=== PATIENT | male | born 1955 | race African-American/Black ===

== ENCOUNTER 2019-07-18 19:19 | Inpatient (IN) ==
[2019-07-18] MEDS ORDERED: methylPREDNISolone SOD SUC 125 MG/2 ML VIAL IV STA (19:32)
[2019-07-18 19:39] LABS: Basophils # 0.1 10*3/uL (0.0-0.2); Basophils % 1.7 % (0.0-0.8); Eosinophils # 0.5 10*3/uL (0.0-0.87); Eosinophils % 6.5 % (0.00-10.9); Hematocrit 42.3 VOL% (42.0-52.0); Hemoglobin 13.7 GM/DL (14.0-18.0); Immature Granulocytes % 0.4 %; Immature Granulocytes Absolute 0.03 #; Lymphocytes # 1.5 10*3/uL (1.4-4.0); Lymphocytes % 21.7 % (21.2-54.2); Mean Corpuscular HGB Conc 32.4 GM/DL (32-36); Mean Corpuscular Volume 92.8 FL (87-102); Monocytes % 10.3 % (1.7-12.7); Neutrophils % 59.4 % (38.7-73.9); Platelet Count 159 T/CUMM (130-400); Red Blood Count 4.56 MC/CUMM (3.8-5.5); Red Cell Distribution Width 13.4 % (9.3-17.3); White Blood Count 6.9 T/CUMM (4-12)
[2019-07-18 19:56] LABS: Albumin 3.8 G/DL (3.4-5.0); Bilirubin,Total 0.7 MG/DL (0.2-1.0); Calcium 8.6 MG/DL (8.5-10.1); Osmolality,Calculated 280.1 MOS/KG (273-304)
[2019-07-18] MEDS ORDERED: AZITHROMYCIN 250 MG TABLET PO STA (20:26)
[2019-07-18] MEDS ORDERED: cefTRIAXone 1,000 MG in SODIUM CHLORIDE 0.9% 100 ML IV STA (20:26)
[2019-07-19] MEDS ORDERED: LORazepam 2 MG/1 ML VIAL IV PRN (00:46)
[2019-07-19] MEDS ORDERED: DOCUSATE SODIUM 100 MG CAPSULE PO PRN (00:46)
[2019-07-19] MEDS ORDERED: ONDANSETRON 4 MG/2 ML VIAL IV PRN (00:46)
[2019-07-19] MEDS ORDERED: MAGNESIUM SULF RIDER 2 GM in PREMIX 1 EACH IV PRN (00:46)
[2019-07-19] MEDS ORDERED: MAGNESIUM SULF RIDER 4 GM in PREMIX 1 EACH IV PRN (00:46)
[2019-07-19] MEDS ORDERED: ACETAMINOPHEN 325 MG TABLET PO PRN (00:46)
[2019-07-19] MEDS ORDERED: methylPREDNISolone SOD SUC 40 MG/1 ML VIAL IV ONE (01:00)
[2019-07-19] MEDS: LEVALBUTEROL 1.25 MG/3 ML NEB RESP TX SCH ×7 (01:15→23:55)
[2019-07-19 01:19] LABS: Calcium 8.8 MG/DL (8.5-10.1); Osmolality,Calculated 280.1 MOS/KG (273-304)
[2019-07-19 01:34] LABS: Basophils # 0.1 10*3/uL (0.0-0.2); Basophils % 0.5 % (0.0-0.8); Hemoglobin 13.2 GM/DL (14.0-18.0); Immature Granulocytes % 0.3 %; Immature Granulocytes Absolute 0.03 #; Lymphocytes # 0.3 10*3/uL (1.4-4.0); Lymphocytes % 2.8 % (21.2-54.2); Mean Corpuscular HGB Conc 32.2 GM/DL (32-36); Mean Corpuscular Volume 93.2 FL (87-102); Mean Platelet Volume 11.1 FL (9.6-12.0); Monocytes % 0.6 % (1.7-12.7); Neutrophils % 95.8 % (38.7-73.9); Platelet Count 149 T/CUMM (130-400); Red Cell Distribution Width 13.5 % (9.3-17.3); White Blood Count 9.4 T/CUMM (4-12)
[2019-07-19] MEDS: BUDESONIDE/FORMOTEROL 160-4.5 INHALER 6 GM INH SCH ×3 (01:51→21:53)
[2019-07-19] MEDS: CARVEDILOL 6.25 MG TABLET PO SCH ×3 (01:51→16:50)
[2019-07-19] MEDS: DOXYCYCLINE HYCLATE INJ 100 MG in SODIUM CHLORIDE 0.9% 100 ML IV SCH ×2 (01:57→12:33)
[2019-07-19 04:53] LABS: Anisocytosis 1+; Eosinophils 1 % (0-10); Lymphocytes 7 % (20-55); Platelet Estimate Adequate; Segmented Neutrophils 90 % (50-85); Total Cells Counted 100
[2019-07-19] MEDS: POTASSIUM CHLORIDE 20 MEQ TABLET PO PRN ×2 (05:51→08:45)
[2019-07-19] MEDS: ENOXAPARIN 40 MG/0.4 ML SYRINGE SUBCUT SCH (05:51)
[2019-07-19] MEDS: PHENYTOIN ER 100 MG CAPSULE PO SCH ×3 (08:44→21:49)
[2019-07-19] MEDS: predniSONE 20 MG TABLET PO SCH (08:44)
[2019-07-19] MEDS: FOLIC ACID 1 MG TABLET PO SCH (08:44)
[2019-07-19] MEDS: MONTELUKAST 10 MG TABLET PO SCH (08:45)
[2019-07-19] MEDS: MULTIVITAMIN (CENTRUM) TABLET PO SCH (08:45)
[2019-07-19] MEDS: TAMSULOSIN 0.4 MG CAPSULE PO SCH (08:45)
[2019-07-19] MEDS: amLODIPine 10 MG TABLET PO SCH (08:45)
[2019-07-19] MEDS: THIAMINE 100 MG TABLET PO SCH (08:45)
[2019-07-19] MEDS: GEMFIBROZIL 600 MG TABLET PO SCH (08:46)
[2019-07-20] MEDS: DOXYCYCLINE HYCLATE INJ 100 MG in SODIUM CHLORIDE 0.9% 100 ML IV SCH ×2 (02:08→12:24)
[2019-07-20] MEDS: LORazepam 2 MG/1 ML VIAL IV PRN ×6 (02:22→22:51)
[2019-07-20] MEDS: LEVALBUTEROL 1.25 MG/3 ML NEB RESP TX SCH ×6 (02:30→23:31)
[2019-07-20 08:16] LABS: Basophils % 0.2 % (0.0-0.8); Hematocrit 46.6 VOL% (42.0-52.0); Immature Granulocytes % 0.5 %; Immature Granulocytes Absolute 0.04 #; Lymphocytes # 0.6 10*3/uL (1.4-4.0); Lymphocytes % 7.4 % (21.2-54.2); Mean Corpuscular HGB Conc 32.6 GM/DL (32-36); Mean Corpuscular Volume 92.8 FL (87-102); Mean Platelet Volume 11.3 FL (9.6-12.0); Monocytes % 9.1 % (1.7-12.7); Neutrophils % 82.8 % (38.7-73.9); Platelet Count 143 T/CUMM (130-400); Red Blood Count 5.02 MC/CUMM (3.8-5.5); Red Cell Distribution Width 13.1 % (9.3-17.3); White Blood Count 8.7 T/CUMM (4-12)
[2019-07-20 08:28] LABS: Hemoglobin 15.2 GM/DL (14.0-18.0)
[2019-07-20 08:32] LABS: Calcium 9.5 MG/DL (8.5-10.1); Osmolality,Calculated 267.2 MOS/KG (273-304)
[2019-07-20] MEDS: GEMFIBROZIL 600 MG TABLET PO SCH (08:55)
[2019-07-20] MEDS: THIAMINE 100 MG TABLET PO SCH (08:56)
[2019-07-20] MEDS: TAMSULOSIN 0.4 MG CAPSULE PO SCH (08:56)
[2019-07-20] MEDS: predniSONE 20 MG TABLET PO SCH (08:56)
[2019-07-20] MEDS: MULTIVITAMIN (CENTRUM) TABLET PO SCH (08:56)
[2019-07-20] MEDS: amLODIPine 10 MG TABLET PO SCH (08:56)
[2019-07-20] MEDS: MONTELUKAST 10 MG TABLET PO SCH (08:56)
[2019-07-20] MEDS: PHENYTOIN ER 100 MG CAPSULE PO SCH ×3 (08:56→21:55)
[2019-07-20] MEDS: CARVEDILOL 6.25 MG TABLET PO SCH ×2 (08:56→17:34)
[2019-07-20] MEDS: FOLIC ACID 1 MG TABLET PO SCH (08:56)
[2019-07-20] MEDS: ENOXAPARIN 40 MG/0.4 ML SYRINGE SUBCUT SCH (08:56)
[2019-07-20] MEDS: BUDESONIDE/FORMOTEROL 160-4.5 INHALER 6 GM INH SCH ×2 (08:57→21:55)
[2019-07-21] MEDS: DOXYCYCLINE HYCLATE INJ 100 MG in SODIUM CHLORIDE 0.9% 100 ML IV SCH ×2 (00:55→14:35)
[2019-07-21] MEDS: LEVALBUTEROL 1.25 MG/3 ML NEB RESP TX SCH ×5 (02:47→19:11)
[2019-07-21 05:37] LABS: Basophils % 0.1 % (0.0-0.8); Eosinophils % 0.1 % (0.00-10.9); Hematocrit 45.7 VOL% (42.0-52.0); Immature Granulocytes % 0.5 %; Immature Granulocytes Absolute 0.04 #; Lymphocytes # 0.8 10*3/uL (1.4-4.0); Lymphocytes % 9.3 % (21.2-54.2); Mean Corpuscular HGB Conc 32.8 GM/DL (32-36); Mean Corpuscular Volume 91.6 FL (87-102); Mean Platelet Volume 11.6 FL (9.6-12.0); Platelet Count 147 T/CUMM (130-400); Red Blood Count 4.99 MC/CUMM (3.8-5.5); Red Cell Distribution Width 12.8 % (9.3-17.3); White Blood Count 8.1 T/CUMM (4-12)
[2019-07-21 06:08] LABS: Calcium 9.7 MG/DL (8.5-10.1); Osmolality,Calculated 270.1 MOS/KG (273-304)
[2019-07-21] MEDS: TAMSULOSIN 0.4 MG CAPSULE PO SCH (08:13)
[2019-07-21] MEDS: predniSONE 20 MG TABLET PO SCH (08:13)
[2019-07-21] MEDS: PHENYTOIN ER 100 MG CAPSULE PO SCH ×3 (08:13→20:17)
[2019-07-21] MEDS: CARVEDILOL 6.25 MG TABLET PO SCH ×2 (08:13→16:55)
[2019-07-21] MEDS: MONTELUKAST 10 MG TABLET PO SCH (08:13)
[2019-07-21] MEDS: ENOXAPARIN 40 MG/0.4 ML SYRINGE SUBCUT SCH (08:13)
[2019-07-21] MEDS: FOLIC ACID 1 MG TABLET PO SCH (08:13)
[2019-07-21] MEDS: amLODIPine 10 MG TABLET PO SCH (08:13)
[2019-07-21] MEDS: MULTIVITAMIN (CENTRUM) TABLET PO SCH (08:14)
[2019-07-21] MEDS: THIAMINE 100 MG TABLET PO SCH (08:14)
[2019-07-21] MEDS: GEMFIBROZIL 600 MG TABLET PO SCH (08:14)
[2019-07-21] MEDS: BUDESONIDE/FORMOTEROL 160-4.5 INHALER 6 GM INH SCH ×2 (08:19→20:18)
[2019-07-22] MEDS: LEVALBUTEROL 1.25 MG/3 ML NEB RESP TX SCH ×6 (00:45→19:03)
[2019-07-22] MEDS: DOXYCYCLINE HYCLATE INJ 100 MG in SODIUM CHLORIDE 0.9% 100 ML IV SCH ×2 (01:18→13:32)
[2019-07-22] MEDS: LORazepam 2 MG/1 ML VIAL IV PRN (04:35)
[2019-07-22 05:33] LABS: Basophils % 0.1 % (0.0-0.8); Eosinophils % 0.2 % (0.00-10.9); Hematocrit 45.2 VOL% (42.0-52.0); Hemoglobin 14.6 GM/DL (14.0-18.0); Immature Granulocytes % 0.4 %; Immature Granulocytes Absolute 0.03 #; Lymphocytes # 1.2 10*3/uL (1.4-4.0); Lymphocytes % 13.7 % (21.2-54.2); Mean Corpuscular HGB Conc 32.3 GM/DL (32-36); Mean Corpuscular Volume 92.6 FL (87-102); Mean Platelet Volume 12.5 FL (9.6-12.0); Monocytes % 14.1 % (1.7-12.7); Neutrophils % 71.5 % (38.7-73.9); Platelet Count 110 T/CUMM (130-400); Red Blood Count 4.88 MC/CUMM (3.8-5.5); Red Cell Distribution Width 12.7 % (9.3-17.3); White Blood Count 8.4 T/CUMM (4-12)
[2019-07-22 05:57] LABS: Calcium 9.1 MG/DL (8.5-10.1); Osmolality,Calculated 268.2 MOS/KG (273-304)
[2019-07-22] MEDS ORDERED: MAGNESIUM SULF RIDER 2 GM in PREMIX 1 EACH IV ONE (08:07)
[2019-07-22] MEDS: CARVEDILOL 6.25 MG TABLET PO SCH ×2 (08:47→17:08)
[2019-07-22] MEDS: TAMSULOSIN 0.4 MG CAPSULE PO SCH (08:47)
[2019-07-22] MEDS: MULTIVITAMIN (CENTRUM) TABLET PO SCH (08:47)
[2019-07-22] MEDS: predniSONE 20 MG TABLET PO SCH (08:47)
[2019-07-22] MEDS: PHENYTOIN ER 100 MG CAPSULE PO SCH ×3 (08:47→21:09)
[2019-07-22] MEDS: GEMFIBROZIL 600 MG TABLET PO SCH (08:48)
[2019-07-22] MEDS: amLODIPine 10 MG TABLET PO SCH (08:48)
[2019-07-22] MEDS: MONTELUKAST 10 MG TABLET PO SCH (08:48)
[2019-07-22] MEDS: THIAMINE 100 MG TABLET PO SCH (08:48)
[2019-07-22] MEDS: FOLIC ACID 1 MG TABLET PO SCH (08:48)
[2019-07-22] MEDS: ENOXAPARIN 40 MG/0.4 ML SYRINGE SUBCUT SCH (08:49)
[2019-07-22] MEDS: BUDESONIDE/FORMOTEROL 160-4.5 INHALER 6 GM INH SCH ×2 (08:56→21:12)
[2019-07-23] MEDS: LEVALBUTEROL 1.25 MG/3 ML NEB RESP TX SCH ×3 (00:31→07:08)
[2019-07-23] MEDS: DOXYCYCLINE HYCLATE INJ 100 MG in SODIUM CHLORIDE 0.9% 100 ML IV SCH (00:36)
[2019-07-23 07:58] VITALS: BP 142/94
[2019-07-23] MEDS ORDERED: MAGNESIUM SULF RIDER 2 GM in PREMIX 1 EACH IV ONE (08:50)
[2019-07-23] MEDS: predniSONE 20 MG TABLET PO SCH (09:01)
[2019-07-23] MEDS: MONTELUKAST 10 MG TABLET PO SCH (09:02)
[2019-07-23] MEDS: FOLIC ACID 1 MG TABLET PO SCH (09:02)
[2019-07-23] MEDS: THIAMINE 100 MG TABLET PO SCH (09:02)
[2019-07-23] MEDS: TAMSULOSIN 0.4 MG CAPSULE PO SCH (09:02)
[2019-07-23] MEDS: GEMFIBROZIL 600 MG TABLET PO SCH (09:02)
[2019-07-23] MEDS: PHENYTOIN ER 100 MG CAPSULE PO SCH (09:02)
[2019-07-23] MEDS: MULTIVITAMIN (CENTRUM) TABLET PO SCH (09:02)
[2019-07-23] MEDS: CARVEDILOL 6.25 MG TABLET PO SCH (09:02)
[2019-07-23] MEDS: amLODIPine 10 MG TABLET PO SCH (09:02)
[2019-07-23] MEDS: BUDESONIDE/FORMOTEROL 160-4.5 INHALER 6 GM INH SCH (09:04)
== END 2019-07-23 10:15 | disposition home health service (06) | DRG 190 ==
LOC: EDBD → EDUNIT# → N.ED 19:19 → N.EDINP 22:31 → N.TELEN 07-19 00:17 → N.3E 07-19 16:26
PROVIDERS: ADMIT Internal Medicine; ATTEND Internal Medicine

== ENCOUNTER 2019-07-25 20:36 | Inpatient (IN) ==
[2019-07-25] MEDS ORDERED: AZITHROMYCIN INJ 500 MG in SODIUM CHLORIDE 0.9% 250 ML IV STA (20:52)
[2019-07-25] MEDS ORDERED: ONDANSETRON 4 MG/2 ML VIAL IV STA (20:52)
[2019-07-25] MEDS ORDERED: methylPREDNISolone SOD SUC 125 MG/2 ML VIAL IV STA (20:52)
[2019-07-25] MEDS ORDERED: ALBUTEROL NEB SOLN 5 MG/ML 20 ML/BOTTLE RESP TX SCH (21:00)
[2019-07-25] MEDS: TERBUTALINE 1 MG/1 ML VIAL SUBCUT SCH ×2 (21:13→21:50)
[2019-07-25] MEDS ORDERED: TERBUTALINE 1 MG/1 ML VIAL SUBCUT ONE (21:19)
[2019-07-25] MEDS ORDERED: ALBUTEROL/IPRATROPIUM 3 ML NEB RESP TX STA (21:31)
[2019-07-25 21:42] LABS: ABG Base Excess -1.2 MMOL/L (-2.5-2.5); ABG HCO3 26.4 MMOL/L (20-26); ABG Oxygen Saturation 95.1 % (95-100); ABG PCO2 56.2 MM HG (35-48); ABG PO2 85.5 MM HG (80-95); ABG TCO2 28.1 MMOL/L (23-27); Allen Test Positive
[2019-07-25] MEDS ORDERED: guaiFENesin/DM ER 600-30 MG TABLET PO PRN (22:15)
[2019-07-25] MEDS ORDERED: diphenhydrAMINE CAP 25 MG CAPSULE PO PRN (22:15)
[2019-07-25] MEDS ORDERED: MORPHINE 4 MG/1 ML VIAL IV PRN (22:15)
[2019-07-25] MEDS ORDERED: ONDANSETRON 4 MG/2 ML VIAL IV PRN (22:15)
[2019-07-25] MEDS ORDERED: traZODone 50 MG TABLET PO PRN (22:15)
[2019-07-25] MEDS ORDERED: PROMETHAZINE 25 MG/1 ML VIAL IM PRN (22:15)
[2019-07-25] MEDS ORDERED: BISACODYL 5 MG TABLET PO PRN (22:15)
[2019-07-25] MEDS ORDERED: ACETAMINOPHEN 325 MG TABLET PO PRN (22:15)
[2019-07-25] MEDS ORDERED: ALBUTEROL 2.5 MG/3 ML NEB RESP TX PRN (22:15)
[2019-07-25] MEDS ORDERED: NICOTINE 21 MG/24 HR PATCH TRANSDERM PRN (22:15)
[2019-07-25] MEDS ORDERED: LORazepam 2 MG/1 ML VIAL IV PRN (22:15)
[2019-07-25 22:46] LABS: Basophils % 0.2 % (0.0-0.8); Hematocrit 45.1 VOL% (42.0-52.0); Hemoglobin 14.4 GM/DL (14.0-18.0); Immature Granulocytes % 0.5 %; Immature Granulocytes Absolute 0.06 #; Lymphocytes # 0.5 10*3/uL (1.4-4.0); Lymphocytes % 4.7 % (21.2-54.2); Mean Corpuscular HGB Conc 31.9 GM/DL (32-36); Mean Corpuscular Volume 95.1 FL (87-102); Mean Platelet Volume 10.9 FL (9.6-12.0); Monocytes % 10.2 % (1.7-12.7); Neutrophils % 84.4 % (38.7-73.9); Platelet Count 224 T/CUMM (130-400); Red Blood Count 4.74 MC/CUMM (3.8-5.5); Red Cell Distribution Width 12.5 % (9.3-17.3); White Blood Count 11.6 T/CUMM (4-12)
[2019-07-25 23:10] LABS: Alanine Aminotransferase 24 U/L (16-61); Albumin 3.9 G/DL (3.4-5.0); Alkaline Phosphatase 131 U/L (45-117); Aspartate Amino Transferase 23 U/L (0-37); Band Neutrophils 1 % (0-10); Blood Urea Nitrogen 10 MG/DL (7-18); Calcium 9.5 MG/DL (8.5-10.1); Glucose 126 MG/DL (74-106); Lymphocytes 5 % (20-55); Osmolality,Calculated 275.7 MOS/KG (273-304); Platelet Estimate Adequate; Segmented Neutrophils 86 % (50-85); Total Cells Counted 100; Total Protein 8.5 G/DL (6.4-8.3)
[2019-07-25 23:11] LABS: Troponin I 0.224 NG/ML (0.00-0.045)
[2019-07-25] MEDS: HEPARIN 5,000 UNIT/1 ML VIAL SUBCUT SCH (23:55)
[2019-07-26 00:12] LABS: Barbiturates Screen,Urine Negative (Negative); Benzodiazepines Screen,Urine Negative (Negative); Cannabinoid Screen,Urine Negative (Negative); Opiate Screen,Urine Negative (Negative); Phencyclidine Screen,Urine Negative (Negative)
[2019-07-26] MEDS ORDERED: ALBUTEROL/IPRATROPIUM 3 ML NEB RESP TX SCH (01:00)
[2019-07-26] MEDS: LEVALBUTEROL 0.31 MG/3 ML NEB RESP TX SCH ×6 (02:24→23:11)
[2019-07-26 04:11] LABS: ABG Base Excess 1.3 MMOL/L (-2.5-2.5); ABG HCO3 26.1 MMOL/L (20-26); ABG Oxygen Saturation 97.7 % (95-100); ABG PH 7.411 (7.35-7.45); ABG PO2 100.5 MM HG (80-95); ABG TCO2 27.4 MMOL/L (23-27); Allen Test Positive; Pt O2 Delivery Device BIPAP
[2019-07-26] MEDS: HEPARIN 5,000 UNIT/1 ML VIAL SUBCUT SCH ×3 (06:27→23:58)
[2019-07-26] MEDS: FAMOTIDINE 20 MG/2 ML VIAL IV SCH ×2 (09:39→21:26)
[2019-07-26] MEDS: amLODIPine 10 MG TABLET PO SCH (09:39)
[2019-07-26] MEDS: TAMSULOSIN 0.4 MG CAPSULE PO SCH (09:39)
[2019-07-26] MEDS: methylPREDNISolone SOD SUC 40 MG/1 ML VIAL IV SCH ×2 (09:39→21:24)
[2019-07-26] MEDS: MONTELUKAST 10 MG TABLET PO SCH (09:39)
[2019-07-26] MEDS: BUDESONIDE/FORMOTEROL 160-4.5 INHALER 6 GM INH SCH ×2 (09:40→21:26)
[2019-07-26] MEDS: CARVEDILOL 6.25 MG TABLET PO SCH ×2 (09:40→21:25)
[2019-07-26 12:25] LABS: ABG Base Excess 4.3 MMOL/L (-2.5-2.5); ABG HCO3 28.3 MMOL/L (20-26); ABG Oxygen Saturation 98.2 % (95-100); ABG PCO2 38.3 MM HG (35-48); ABG PH 7.473 (7.35-7.45); ABG PO2 90.9 MM HG (80-95); ABG TCO2 24.7 MMOL/L (23-27); Pt O2 Delivery Device Room Air
[2019-07-26] MEDS ORDERED: AZITHROMYCIN INJ 500 MG in SODIUM CHLORIDE 0.9% 250 ML IV SCH (22:30)
[2019-07-27] MEDS: LEVALBUTEROL 0.31 MG/3 ML NEB RESP TX SCH ×3 (03:20→10:50)
[2019-07-27] MEDS: HEPARIN 5,000 UNIT/1 ML VIAL SUBCUT SCH (06:33)
[2019-07-27 07:23] VITALS: BP 150/83
[2019-07-27] MEDS: TERBUTALINE 1 MG/1 ML VIAL SUBCUT SCH (08:16)
[2019-07-27] MEDS ORDERED: THIAMINE 100 MG TABLET PO SCH (09:00)
[2019-07-27] MEDS: TAMSULOSIN 0.4 MG CAPSULE PO SCH (09:07)
[2019-07-27] MEDS: MONTELUKAST 10 MG TABLET PO SCH (09:07)
[2019-07-27] MEDS: amLODIPine 10 MG TABLET PO SCH (09:07)
[2019-07-27] MEDS: CARVEDILOL 6.25 MG TABLET PO SCH (09:08)
[2019-07-27] MEDS: methylPREDNISolone SOD SUC 40 MG/1 ML VIAL IV SCH (09:08)
[2019-07-27] MEDS: FAMOTIDINE 20 MG/2 ML VIAL IV SCH (09:08)
[2019-07-27] MEDS: BUDESONIDE/FORMOTEROL 160-4.5 INHALER 6 GM INH SCH (09:09)
== END 2019-07-27 13:04 | disposition home or self-care (01) | DRG 189 ==
LOC: EDBD → EDUNIT# → N.ED 20:36 → N.EDINP 22:15 → SUATTDRO 22:15 → N.ICU 22:34 → N.5E 07-26 15:32
PROVIDERS: ADMIT Internal Medicine Nephrology; ATTEND Internal Medicine

== ENCOUNTER 2020-07-08 09:39 | Inpatient (IN) ==
[2020-07-08] MEDS ORDERED: methylPREDNISolone SOD SUC 125 MG/2 ML VIAL IV STA (09:43)
[2020-07-08] MEDS ORDERED: ALBUTEROL NEB SOLN 5 MG/ML 20 ML/BOTTLE CONT NEB STA (09:46)
[2020-07-08] MEDS ORDERED: MAGNESIUM SULF RIDER 2 GM in PREMIX 1 EACH IV STA (09:49)
[2020-07-08] MEDS ORDERED: hydrALAZINE 20 MG/1 ML VIAL ONE (09:57)
[2020-07-08] MEDS ORDERED: hydrALAZINE 20 MG/1 ML VIAL IV STA ×2 (10:01→10:05)
[2020-07-08] MEDS ORDERED: LORazepam 2 MG/1 ML VIAL ONE (10:08)
[2020-07-08] MEDS ORDERED: LORazepam 2 MG/1 ML VIAL IV STA (10:16)
[2020-07-08 10:21] LABS: Basophils % 0.7 % (0.0-0.8); Eosinophils # 0.1 10*3/uL (0.0-0.87); Eosinophils % 1.2 % (0.00-10.9); Hemoglobin 15.4 GM/DL (14.0-18.0); Immature Granulocytes % 0.3 %; Immature Granulocytes Absolute 0.02 #; Lymphocytes % 33.2 % (21.2-54.2); Mean Corpuscular HGB Conc 32.8 GM/DL (32-36); Mean Corpuscular Volume 93.8 FL (87-102); Mean Platelet Volume 10.9 FL (9.6-12.0); Monocytes % 10.7 % (1.7-12.7); Neutrophils % 53.9 % (38.7-73.9); Platelet Count 184 T/CUMM (130-400); Red Blood Count 5.01 MC/CUMM (3.8-5.5); Red Cell Distribution Width 13.6 % (9.3-17.3)
[2020-07-08 10:27] LABS: PT Patient Result 10.5 SECS (9.8-11.9); Partial Thromboplastin Time 25.9 SECS (23.9-33.8)
[2020-07-08 10:32] LABS: Albumin 3.9 G/DL (3.4-5.0); Bilirubin,Total 1.8 MG/DL (0.2-1.0); Calcium 9.5 MG/DL (8.5-10.1); Total Protein 9.3 G/DL (6.4-8.3)
[2020-07-08] MEDS ORDERED: SODIUM CHLORIDE 0.9% 1,000 ML IV STA ×2 (10:40→13:04)
[2020-07-08 10:43] LABS: Ferritin 33.1 ng/ml (26-388)
[2020-07-08 10:58] LABS: ABG Base Excess -4.5 MMOL/L (-2.5-2.5); ABG HCO3 20.8 MMOL/L (20-26); ABG Oxygen Saturation 98.6 % (95-100); ABG TCO2 28.3 MMOL/L (23-27)
[2020-07-08 11:00] LABS: ABG PH 7.072 (7.35-7.45)
[2020-07-08 11:07] LABS: Apearance,Urine CLEAR (Clear); Bacteria,Urine Occasional /HPF (Few); Bilirubin,Urine Negative (Negative); Blood, Urine Negative (Negative); Glucose,Urine (UA) 50 mg/dL (Negative); Hyaline Casts,Urine 5 /LPF (0-3); Ketones,Urine Negative (Negative); Mucus,Urine Occasional /LPF (Occasional); Nitrite,Urine Negative (Negative); Protein,Urine 100 MG/DL; RBC,Urine 1 /HPF (0-4); Squamous Epithelial Cell,Urine Occasional /HPF (0-10); Urine Color Yellow (Yellow); Urine Specific Gravity 1.013 (1.001-1.035); Urine Urobilinogen < 2.0 EU/DL (0.2-1.0); WBC,Urine 1 /HPF (0-6)
[2020-07-08] MEDS ORDERED: ROCURONIUM 100 MG/10 ML VIAL IV ONE (11:15)
[2020-07-08] MEDS ORDERED: ETOMIDATE 20 MG/10 ML VIAL IV ONE (11:15)
[2020-07-08 11:29] LABS: Barbiturates Screen,Urine Negative (Negative); Benzodiazepines Screen,Urine Negative (Negative); Cannabinoid Screen,Urine Negative (Negative); Opiate Screen,Urine Negative (Negative); Phencyclidine Screen,Urine Negative (Negative)
[2020-07-08 12:48] LABS: ABG Base Excess -1.6 MMOL/L (-2.5-2.5); ABG HCO3 23.2 MMOL/L (20-26); ABG PCO2 34.7 MM HG (35-48); ABG PH 7.417 (7.35-7.45); ABG TCO2 19.5 MMOL/L (23-27)
[2020-07-08] MEDS ORDERED: PIPERACILLIN/TAZOBACTAM 3,375 MG in SODIUM CHLORIDE 0.9% 100 ML IV STA (13:05)
[2020-07-08] MEDS ORDERED: MORPHINE 4 MG/1 ML VIAL IV PRN (13:12)
[2020-07-08] MEDS ORDERED: ALBUTEROL 2.5 MG/3 ML NEB RESP TX PRN ×2 (13:12)
[2020-07-08] MEDS ORDERED: ONDANSETRON 4 MG/2 ML VIAL IV PRN (13:12)
[2020-07-08] MEDS: LACTATED RINGERS 1,000 ML IV SCH (14:30)
[2020-07-08] MEDS ORDERED: MIDAZOLAM 100 MG in SODIUM CHLORIDE 0.9% 80 ML IV PRN (16:00)
[2020-07-08] MEDS: ENOXAPARIN 40 MG/0.4 ML SYRINGE SUBCUT SCH (16:08)
[2020-07-08] MEDS: PANTOPRAZOLE 40 MG VIAL IV SCH (16:09)
[2020-07-08] MEDS: LEVOFLOXACIN INJ 750 MG in PREMIX 1 EACH IV SCH (16:39)
[2020-07-08] MEDS: methylPREDNISolone SOD SUC 40 MG/1 ML VIAL IV SCH (18:38)
[2020-07-08] MEDS: ALBUTEROL/IPRATROPIUM 3 ML NEB RESP TX SCH (19:18)
[2020-07-09] MEDS: LACTATED RINGERS 1,000 ML IV SCH ×4 (00:31→19:57)
[2020-07-09] MEDS: ALBUTEROL/IPRATROPIUM 3 ML NEB RESP TX SCH ×4 (00:35→18:02)
[2020-07-09 03:48] LABS: Basophils % 0.1 % (0.0-0.8); Hematocrit 39.1 VOL% (42.0-52.0); Hemoglobin 12.5 GM/DL (14.0-18.0); Immature Granulocytes % 0.4 %; Immature Granulocytes Absolute 0.05 #; Lymphocytes # 0.3 10*3/uL (1.4-4.0); Lymphocytes % 2.8 % (21.2-54.2); Mean Corpuscular Volume 95.1 FL (87-102); Monocytes % 5.3 % (1.7-12.7); Neutrophils % 91.4 % (38.7-73.9); Platelet Count 123 T/CUMM (130-400); Red Blood Count 4.11 MC/CUMM (3.8-5.5); Red Cell Distribution Width 13.8 % (9.3-17.3); White Blood Count 11.9 T/CUMM (4-12)
[2020-07-09 04:07] LABS: Lymphocytes 8 % (20-55); Platelet Estimate Normal; Segmented Neutrophils 91 % (50-85); Total Cells Counted 100
[2020-07-09 04:14] LABS: Calcium 8.4 MG/DL (8.5-10.1); Osmolality,Calculated 270.8 MOS/KG (273-304)
[2020-07-09 04:41] LABS: Allen Test Positive; Pt O2 Delivery Device Ventilator
[2020-07-09 04:43] LABS: ABG Base Excess 1.5 MMOL/L (-2.5-2.5); ABG HCO3 25.7 MMOL/L (20-26); ABG Oxygen Saturation 99.2 % (95-100); ABG PCO2 39.4 MM HG (35-48); ABG PH 7.433 (7.35-7.45); ABG PO2 197.8 MM HG (80-95)
[2020-07-09] MEDS: methylPREDNISolone SOD SUC 40 MG/1 ML VIAL IV SCH ×2 (06:17→18:10)
[2020-07-09] MEDS: DIAZEPAM 5 MG TABLET PO PRN ×8 (10:00→23:43)
[2020-07-09] MEDS: PANTOPRAZOLE 40 MG VIAL IV SCH (13:43)
[2020-07-09] MEDS: ENOXAPARIN 40 MG/0.4 ML SYRINGE SUBCUT SCH (13:43)
[2020-07-09] MEDS ORDERED: DIAZEPAM 5 MG TABLET PO ONE (17:50)
[2020-07-09] MEDS: LEVOFLOXACIN INJ 750 MG in PREMIX 1 EACH IV SCH (18:10)
[2020-07-10] MEDS: ALBUTEROL/IPRATROPIUM 3 ML NEB RESP TX SCH ×4 (00:34→19:57)
[2020-07-10] MEDS: DIAZEPAM 5 MG TABLET PO PRN (02:01)
[2020-07-10 03:51] LABS: Basophils % 0.1 % (0.0-0.8); Hematocrit 37.8 VOL% (42.0-52.0); Hemoglobin 12.1 GM/DL (14.0-18.0); Immature Granulocytes % 0.6 %; Lymphocytes # 0.4 10*3/uL (1.4-4.0); Lymphocytes % 2.3 % (21.2-54.2); Mean Corpuscular Volume 93.6 FL (87-102); Mean Platelet Volume 11.1 FL (9.6-12.0); Monocytes % 5.6 % (1.7-12.7); Neutrophils % 91.4 % (38.7-73.9); Platelet Count 159 T/CUMM (130-400); Red Blood Count 4.04 MC/CUMM (3.8-5.5); Red Cell Distribution Width 13.7 % (9.3-17.3); White Blood Count 16.3 T/CUMM (4-12)
[2020-07-10 04:21] LABS: Albumin 2.7 G/DL (3.4-5.0); Calcium 8.8 MG/DL (8.5-10.1); Osmolality,Calculated 276.4 MOS/KG (273-304); Total Protein 6.8 G/DL (6.4-8.3)
[2020-07-10 04:23] LABS: Lymphocytes 3 % (20-55); Segmented Neutrophils 94 % (50-85); Total Cells Counted 100
[2020-07-10 04:32] LABS: Hypochromasia 1+; Platelet Estimate Normal
[2020-07-10] MEDS: LACTATED RINGERS 1,000 ML IV SCH ×3 (04:43→17:13)
[2020-07-10] MEDS: methylPREDNISolone SOD SUC 40 MG/1 ML VIAL IV SCH (06:39)
[2020-07-10] MEDS: predniSONE 10 MG TABLET PO SCH ×2 (08:57→20:04)
[2020-07-10] MEDS: LEVOFLOXACIN 500 MG TABLET PO SCH (08:57)
[2020-07-10] MEDS: carvediloL 6.25 MG TABLET PO SCH ×2 (08:57→20:04)
[2020-07-10] MEDS: MULTIVITAMIN (CENTRUM) TABLET PO SCH (08:57)
[2020-07-10] MEDS: gemfibroziL 600 MG TABLET PO SCH (08:57)
[2020-07-10] MEDS: EZETIMIBE 10 MG TABLET PO SCH (08:58)
[2020-07-10] MEDS: MONTELUKAST 10 MG TABLET PO SCH (08:58)
[2020-07-10] MEDS: PANTOPRAZOLE 40 MG TABLET PO SCH (08:58)
[2020-07-10] MEDS: BUDESONIDE/FORMOTEROL 160-4.5 INHALER 6 GM INH SCH ×2 (09:44→20:05)
[2020-07-10] MEDS: ENOXAPARIN 40 MG/0.4 ML SYRINGE SUBCUT SCH (12:40)
[2020-07-11] MEDS: ALBUTEROL/IPRATROPIUM 3 ML NEB RESP TX SCH ×2 (01:06→07:10)
[2020-07-11] MEDS ORDERED: hydrALAZINE 20 MG/1 ML VIAL IV PRN (04:41)
[2020-07-11 05:20] LABS: Basophils % 0.2 % (0.0-0.8); Hematocrit 38.6 VOL% (42.0-52.0); Hemoglobin 12.7 GM/DL (14.0-18.0); Immature Granulocytes % 0.6 %; Immature Granulocytes Absolute 0.08 #; Lymphocytes # 0.7 10*3/uL (1.4-4.0); Lymphocytes % 5.7 % (21.2-54.2); Mean Corpuscular HGB Conc 32.9 GM/DL (32-36); Mean Corpuscular Volume 93.2 FL (87-102); Mean Platelet Volume 10.9 FL (9.6-12.0); Monocytes % 7.8 % (1.7-12.7); Neutrophils % 85.7 % (38.7-73.9); Platelet Count 178 T/CUMM (130-400); Red Blood Count 4.14 MC/CUMM (3.8-5.5); Red Cell Distribution Width 13.2 % (9.3-17.3); White Blood Count 12.9 T/CUMM (4-12)
[2020-07-11 05:31] LABS: Calcium 9.7 MG/DL (8.5-10.1); Osmolality,Calculated 277.5 MOS/KG (273-304)
[2020-07-11] MEDS: MONTELUKAST 10 MG TABLET PO SCH (08:44)
[2020-07-11] MEDS: gemfibroziL 600 MG TABLET PO SCH (08:44)
[2020-07-11] MEDS: EZETIMIBE 10 MG TABLET PO SCH (08:44)
[2020-07-11] MEDS: carvediloL 6.25 MG TABLET PO SCH (08:44)
[2020-07-11] MEDS: PANTOPRAZOLE 40 MG TABLET PO SCH (08:44)
[2020-07-11] MEDS: LEVOFLOXACIN 500 MG TABLET PO SCH (08:44)
[2020-07-11] MEDS: MULTIVITAMIN (CENTRUM) TABLET PO SCH (08:44)
[2020-07-11] MEDS: predniSONE 10 MG TABLET PO SCH (08:45)
[2020-07-11] MEDS: BUDESONIDE/FORMOTEROL 160-4.5 INHALER 6 GM INH SCH (08:45)
[2020-07-11 11:55] VITALS: BP 137/79
[2020-07-11] MEDS: ENOXAPARIN 40 MG/0.4 ML SYRINGE SUBCUT SCH (13:26)
== END 2020-07-11 16:42 | disposition home or self-care (01) | DRG 208 ==
LOC: EDUNIT# → EDBD → N.ED 09:39 → N.EDINP 13:12 → SUATTDRO 13:12 → N.ICU 14:11 → N.4E 07-10 10:06
PROVIDERS: ADMIT Internal Medicine; ATTEND Internal Medicine

== ENCOUNTER 2021-04-15 18:09 | Inpatient (IN) ==
[2021-04-15 20:02] LABS: Basophils # 0.1 10*3/uL (0.0-0.2); Basophils % 1.8 % (0.0-0.8); Eosinophils # 0.2 10*3/uL (0.0-0.87); Eosinophils % 4.6 % (0.00-10.9); Hemoglobin 10.5 GM/DL (14.0-18.0); Immature Granulocytes % 0.5 %; Immature Granulocytes Absolute 0.02 #; Lymphocytes % 23.1 % (21.2-54.2); Mean Corpuscular HGB Conc 31.8 GM/DL (32-36); Mean Corpuscular Volume 94.3 FL (87-102); Mean Platelet Volume 10.9 FL (9.6-12.0); Monocytes % 19.6 % (1.7-12.7); Neutrophils % 50.4 % (38.7-73.9); Platelet Count 144 T/CUMM (130-400); Red Cell Distribution Width 12.5 % (9.3-17.3); White Blood Count 4.4 T/CUMM (4-12)
[2021-04-15 20:15] LABS: Albumin 3.7 G/DL (3.4-5.0); Bilirubin,Total 0.6 MG/DL (0.2-1.0); Calcium 8.3 MG/DL (8.5-10.1); Osmolality,Calculated 276.3 MOS/KG (273-304); Potassium 4.1 MMOL/L (3.5-5.1); Total Protein 7.2 G/DL (6.4-8.2)
[2021-04-15 20:21] LABS: INR 0.9; PT Patient Result 10.4 SECS (10.5-12.0); Partial Thromboplastin Time 23.9 SECS (23.9-33.8)
[2021-04-15] MEDS ORDERED: GLUCAGON 1 MG VIAL IM PRN (22:33)
[2021-04-15] MEDS ORDERED: DEXTROSE 50% 25 GM/50 ML VIAL IV PRN (22:33)
[2021-04-15] MEDS ORDERED: ACETAMINOPHEN 325 MG TABLET PO PRN (22:33)
[2021-04-15] MEDS ORDERED: hydrALAZINE 20 MG/1 ML VIAL IV PRN (22:33)
[2021-04-15] MEDS ORDERED: DOCUSATE SODIUM 100 MG CAPSULE PO PRN (22:33)
[2021-04-15] MEDS ORDERED: ZALEPLON 5 MG CAPSULE PO PRN (22:33)
[2021-04-15] MEDS ORDERED: ONDANSETRON 4 MG/2 ML VIAL IV PRN (22:33)
[2021-04-15] MEDS ORDERED: diphenhydrAMINE CAP 25 MG CAPSULE PO PRN (22:33)
[2021-04-15] MEDS ORDERED: NICOTINE 21 MG/24 HR PATCH TRANSDERM PRN (22:33)
[2021-04-15] MEDS ORDERED: guaiFENesin/DM ER 600-30 MG TABLET PO PRN (22:33)
[2021-04-16] MEDS: ALBUTEROL/IPRATROPIUM 3 ML NEB RESP TX SCH ×4 (01:20→19:38)
[2021-04-16 05:15] LABS: Basophils # 0.1 10*3/uL (0.0-0.2); Basophils % 1.4 % (0.0-0.8); Eosinophils # 0.1 10*3/uL (0.0-0.87); Eosinophils % 2.8 % (0.00-10.9); Hematocrit 30.2 VOL% (42.0-52.0); Immature Granulocytes % 0.4 %; Immature Granulocytes Absolute 0.02 #; Lymphocytes # 1.5 10*3/uL (1.4-4.0); Lymphocytes % 30.1 % (21.2-54.2); Mean Corpuscular HGB Conc 33.1 GM/DL (32-36); Mean Corpuscular Volume 92.6 FL (87-102); Mean Platelet Volume 11.2 FL (9.6-12.0); Monocytes % 14.4 % (1.7-12.7); Neutrophils % 50.9 % (38.7-73.9); Platelet Count 132 T/CUMM (130-400); Red Blood Count 3.26 MC/CUMM (3.8-5.5); Red Cell Distribution Width 12.2 % (9.3-17.3); White Blood Count 4.9 T/CUMM (4-12)
[2021-04-16 05:40] LABS: Osmolality,Calculated 272.5 MOS/KG (273-304); Potassium 3.9 MMOL/L (3.5-5.1)
[2021-04-16 05:47] LABS: Hypochromasia 1+
[2021-04-16 05:48] LABS: Microcytosis 1+; Platelet Estimate Adequate; Target Cells Slight
[2021-04-16] MEDS: POLYETHYLENE GLYCOL POWDER 17 GM PACK PO SCH ×2 (09:05→21:30)
[2021-04-16] MEDS: PANTOPRAZOLE 40 MG VIAL IV SCH (09:05)
[2021-04-16 09:52] LABS: Hepatitis B Core IgM Quant < 0.05 Index; Hepatitis B Surface Ag Result Non-Reactive (NonReactive); Hepatitis C Virus Ab Quant 0.04 Index; Hepatitis C Virus Ab Result Non-Reactive (NonReactive)
[2021-04-16] MEDS ORDERED: ALBUTEROL/IPRATROPIUM 3 ML NEB RESP TX SCH (16:30)
[2021-04-16] MEDS: carvediloL 6.25 MG TABLET PO SCH (17:37)
[2021-04-16] MEDS ORDERED: chlordiazePOXIDE 10 MG CAPSULE PO PRN (23:34)
[2021-04-17] MEDS: ALBUTEROL/IPRATROPIUM 3 ML NEB RESP TX SCH ×7 (00:12→23:00)
[2021-04-17 06:41] LABS: Calcium 10.2 MG/DL (8.5-10.1); Osmolality,Calculated 272.7 MOS/KG (273-304); Potassium 3.5 MMOL/L (3.5-5.1)
[2021-04-17 06:59] LABS: Basophils % 0.5 % (0.0-0.8); Eosinophils # 0.1 10*3/uL (0.0-0.87); Eosinophils % 0.8 % (0.00-10.9); Hematocrit 33.6 VOL% (42.0-52.0); Hemoglobin 10.9 GM/DL (14.0-18.0); Immature Granulocytes % 0.3 %; Immature Granulocytes Absolute 0.02 #; Lymphocytes # 0.7 10*3/uL (1.4-4.0); Lymphocytes % 10.7 % (21.2-54.2); Mean Corpuscular HGB Conc 32.4 GM/DL (32-36); Mean Corpuscular Volume 92.3 FL (87-102); Monocytes % 14.7 % (1.7-12.7); Platelet Count 154 T/CUMM (130-400); Red Blood Count 3.64 MC/CUMM (3.8-5.5); White Blood Count 6.5 T/CUMM (4-12)
[2021-04-17] MEDS: LORazepam 2 MG/1 ML VIAL IV PRN ×2 (08:26→09:55)
[2021-04-17] MEDS: PANTOPRAZOLE 40 MG VIAL IV SCH (08:26)
[2021-04-17] MEDS: BISACODYL 5 MG TABLET PO SCH ×2 (08:26→17:08)
[2021-04-17] MEDS: EZETIMIBE 10 MG TABLET PO SCH (08:26)
[2021-04-17] MEDS: carvediloL 6.25 MG TABLET PO SCH ×2 (08:26→17:08)
[2021-04-17] MEDS: gemfibroziL 600 MG TABLET PO SCH (08:26)
[2021-04-17] MEDS ORDERED: THIAMINE INJ 100 MG, FOLIC ACID INJ 1 MG, MULTIVITAMIN INJ 10 ML in SODIUM CHLORIDE 0.9... IV ONE (10:12)
[2021-04-17] MEDS ORDERED: LORazepam 2 MG/1 ML VIAL IV PRN (10:16)
[2021-04-17] MEDS: METOCLOPRAMIDE 10 MG/2 ML VIAL IV SCH ×2 (11:13→17:14)
[2021-04-17] MEDS ORDERED: POLYETHYLENE GLYCOL POWDER 255 GM BOTTLE PO ONE (18:00)
[2021-04-17] MEDS ORDERED: MAGNESIUM CITRATE 300 ML BOTTLE PO ONE (21:00)
[2021-04-18] MEDS: METOCLOPRAMIDE 10 MG/2 ML VIAL IV SCH ×4 (01:15→17:07)
[2021-04-18] MEDS: BISACODYL 5 MG TABLET PO SCH (01:19)
[2021-04-18] MEDS: ALBUTEROL/IPRATROPIUM 3 ML NEB RESP TX SCH ×6 (03:00→23:30)
[2021-04-18 04:53] LABS: Basophils % 0.3 % (0.0-0.8); Eosinophils # 0.1 10*3/uL (0.0-0.87); Eosinophils % 0.8 % (0.00-10.9); Hematocrit 33.1 VOL% (42.0-52.0); Hemoglobin 10.3 GM/DL (14.0-18.0); Immature Granulocytes % 0.5 %; Immature Granulocytes Absolute 0.03 #; Lymphocytes % 16.1 % (21.2-54.2); Mean Corpuscular HGB Conc 31.1 GM/DL (32-36); Mean Corpuscular Volume 94.8 FL (87-102); Mean Platelet Volume 11.4 FL (9.6-12.0); Monocytes % 14.8 % (1.7-12.7); Neutrophils % 67.5 % (38.7-73.9); Platelet Count 160 T/CUMM (130-400); Red Blood Count 3.49 MC/CUMM (3.8-5.5); Red Cell Distribution Width 11.9 % (9.3-17.3); White Blood Count 6.1 T/CUMM (4-12)
[2021-04-18 05:13] LABS: Calcium 9.2 MG/DL (8.5-10.1); Osmolality,Calculated 275.5 MOS/KG (273-304); Potassium 3.1 MMOL/L (3.5-5.1)
[2021-04-18] MEDS: POTASSIUM CHLORIDE RIDER 10 MEQ/100 ML PREMIX IV PRN ×3 (07:16→12:03)
[2021-04-18] MEDS ORDERED: propofoL 200 MG/20 ML VIAL IV ONE (09:14)
[2021-04-18] MEDS ORDERED: LIDOCAINE 2% 5 ML VIAL ONE (09:14)
[2021-04-18] MEDS: LACTATED RINGERS 1,000 ML IV SCH (09:15)
[2021-04-18] MEDS ORDERED: PHENYLEPHRINE 1 MG/10 ML SYRINGE IV ONE (09:24)
[2021-04-18] MEDS ORDERED: POTASSIUM CHLORIDE 20 MEQ TABLET PO ONE (09:45)
[2021-04-18] MEDS: EZETIMIBE 10 MG TABLET PO SCH (11:01)
[2021-04-18] MEDS: gemfibroziL 600 MG TABLET PO SCH (11:01)
[2021-04-18] MEDS: carvediloL 6.25 MG TABLET PO SCH ×2 (11:01→16:48)
[2021-04-18] MEDS: PANTOPRAZOLE 40 MG VIAL IV SCH (11:01)
[2021-04-18 16:11] LABS: Hemoglobin 10.2 GM/DL (14.0-18.0)
[2021-04-18] MEDS: HYDROCORTISONE 25 MG SUPP RECTAL SCH (21:54)
[2021-04-19] MEDS: METOCLOPRAMIDE 10 MG/2 ML VIAL IV SCH ×4 (00:15→17:20)
[2021-04-19] MEDS: ALBUTEROL/IPRATROPIUM 3 ML NEB RESP TX SCH ×6 (03:32→23:45)
[2021-04-19 05:17] LABS: Basophils # 0.1 10*3/uL (0.0-0.2); Basophils % 0.7 % (0.0-0.8); Eosinophils # 0.2 10*3/uL (0.0-0.87); Eosinophils % 2.4 % (0.00-10.9); Hematocrit 29.7 VOL% (42.0-52.0); Hemoglobin 9.1 GM/DL (14.0-18.0); Immature Granulocytes % 0.4 %; Immature Granulocytes Absolute 0.03 #; Lymphocytes # 1.2 10*3/uL (1.4-4.0); Lymphocytes % 15.6 % (21.2-54.2); Mean Corpuscular HGB Conc 30.6 GM/DL (32-36); Mean Corpuscular Volume 96.4 FL (87-102); Mean Platelet Volume 11.2 FL (9.6-12.0); Monocytes % 17.7 % (1.7-12.7); Neutrophils % 63.2 % (38.7-73.9); Platelet Count 147 T/CUMM (130-400); Red Blood Count 3.08 MC/CUMM (3.8-5.5); Red Cell Distribution Width 11.9 % (9.3-17.3); White Blood Count 7.6 T/CUMM (4-12)
[2021-04-19 05:38] LABS: Osmolality,Calculated 274.5 MOS/KG (273-304); Potassium 3.7 MMOL/L (3.5-5.1)
[2021-04-19 05:41] LABS: Eosinophils 3 % (0-10); Lymphocytes 10 % (20-55); Platelet Estimate Adequate; Segmented Neutrophils 75 % (50-85); Total Cells Counted 100
[2021-04-19 05:43] LABS: Hypochromasia 1+; Microcytosis 1+
[2021-04-19] MEDS: EZETIMIBE 10 MG TABLET PO SCH (09:20)
[2021-04-19] MEDS: HYDROCORTISONE 25 MG SUPP RECTAL SCH ×2 (09:20→21:20)
[2021-04-19] MEDS: carvediloL 6.25 MG TABLET PO SCH ×2 (09:20→17:20)
[2021-04-19] MEDS: PANTOPRAZOLE 40 MG VIAL IV SCH (09:20)
[2021-04-19] MEDS: gemfibroziL 600 MG TABLET PO SCH (09:20)
[2021-04-19] MEDS: LACTATED RINGERS 1,000 ML IV SCH (10:29)
[2021-04-19 13:29] LABS: Hematocrit 29.8 VOL% (42.0-52.0); Hemoglobin 9.4 GM/DL (14.0-18.0)
[2021-04-19] MEDS: POTASSIUM CHLORIDE RIDER 10 MEQ/100 ML PREMIX IV PRN ×2 (15:00→17:23)
[2021-04-19] MEDS ORDERED: MAGNESIUM CITRATE 300 ML BOTTLE PO ONE (19:00)
[2021-04-20] MEDS: METOCLOPRAMIDE 10 MG/2 ML VIAL IV SCH ×3 (01:26→12:16)
[2021-04-20] MEDS: ALBUTEROL/IPRATROPIUM 3 ML NEB RESP TX SCH ×2 (03:33→07:12)
[2021-04-20 05:54] LABS: Basophils % 0.6 % (0.0-0.8); Eosinophils # 0.2 10*3/uL (0.0-0.87); Eosinophils % 2.9 % (0.00-10.9); Hematocrit 28.6 VOL% (42.0-52.0); Hemoglobin 9.1 GM/DL (14.0-18.0); Immature Granulocytes % 0.5 %; Immature Granulocytes Absolute 0.03 #; Lymphocytes # 1.1 10*3/uL (1.4-4.0); Lymphocytes % 16.2 % (21.2-54.2); Mean Corpuscular HGB Conc 31.8 GM/DL (32-36); Mean Corpuscular Volume 95.7 FL (87-102); Mean Platelet Volume 11.3 FL (9.6-12.0); Monocytes % 18.2 % (1.7-12.7); Neutrophils % 61.6 % (38.7-73.9); Platelet Count 166 T/CUMM (130-400); Red Blood Count 2.99 MC/CUMM (3.8-5.5); Red Cell Distribution Width 11.9 % (9.3-17.3); White Blood Count 6.7 T/CUMM (4-12)
[2021-04-20] MEDS ORDERED: SODIUM PHOSPHATE ENEMA 133 ML BOTTLE RECTAL ONE (06:00)
[2021-04-20 06:08] LABS: Calcium 9.1 MG/DL (8.5-10.1); Osmolality,Calculated 273.5 MOS/KG (273-304); Potassium 3.7 MMOL/L (3.5-5.1)
[2021-04-20 06:18] LABS: Band Neutrophils 1 % (0-10); Eosinophils 1 % (0-10); Hypochromasia 1+; Lymphocytes 15 % (20-55); Microcytosis 1+; Platelet Estimate Adequate; Segmented Neutrophils 69 % (50-85); Total Cells Counted 100
[2021-04-20] MEDS ORDERED: propofoL 200 MG/20 ML VIAL IV ONE (08:20)
[2021-04-20] MEDS ORDERED: LIDOCAINE 2% 5 ML VIAL ONE (08:20)
[2021-04-20] MEDS ORDERED: HYDROmorphone 2 MG/1 ML VIAL IV PRN (09:16)
[2021-04-20] MEDS: carvediloL 6.25 MG TABLET PO SCH (09:49)
[2021-04-20] MEDS: gemfibroziL 600 MG TABLET PO SCH (09:49)
[2021-04-20] MEDS: EZETIMIBE 10 MG TABLET PO SCH (09:49)
[2021-04-20] MEDS: PANTOPRAZOLE 40 MG VIAL IV SCH (09:49)
[2021-04-20] MEDS: HYDROCORTISONE 25 MG SUPP RECTAL SCH (10:07)
[2021-04-20 11:39] VITALS: BP 110/80
[2021-04-20] MEDS ORDERED: POLYETHYLENE GLYCOL POWDER 17 GM PACK PO SCH (15:00)
== END 2021-04-20 12:05 | disposition home health service (06) | DRG 348 ==
LOC: N.EDINP 18:09 → N.ED 18:09 → N.5E 22:48 → SUATTDRO 04-16 10:47 → N.5E 04-17 00:09
PROVIDERS: ADMIT Emergency Medicine; ATTEND Internal Medicine
PROC: COLONHP (2021-04-18 10:35)

== ENCOUNTER 2021-05-06 12:48 | Inpatient (IN) ==
[2021-05-06] MEDS ORDERED: SODIUM CHLORIDE 0.9% 1,000 ML IV STA (13:20)
[2021-05-06] MEDS ORDERED: LORazepam 2 MG/1 ML VIAL IV STA (13:20)
[2021-05-06] MEDS ORDERED: THIAMINE INJ 100 MG, FOLIC ACID INJ 1 MG, MAGNESIUM SULF INJ 2 GM, MULTIVITAMIN INJ 10 ... IV STA (13:20)
[2021-05-06] MEDS ORDERED: THIAMINE 200 MG/2 ML VIAL ONE (13:27)
[2021-05-06 14:19] LABS: Basophils % 0.6 % (0.0-0.8); Hematocrit 29.6 VOL% (42.0-52.0); Immature Granulocytes % 0.4 %; Immature Granulocytes Absolute 0.03 #; Lymphocytes # 0.3 10*3/uL (1.4-4.0); Lymphocytes % 3.4 % (21.2-54.2); Mean Corpuscular HGB Conc 30.4 GM/DL (32-36); Mean Corpuscular Volume 91.1 FL (87-102); Mean Platelet Volume 10.2 FL (9.6-12.0); Monocytes % 5.2 % (1.7-12.7); Neutrophils % 90.4 % (38.7-73.9); Platelet Count 155 T/CUMM (130-400); Red Blood Count 3.25 MC/CUMM (3.8-5.5); Red Cell Distribution Width 13.9 % (9.3-17.3); White Blood Count 7.3 T/CUMM (4-12)
[2021-05-06 14:33] LABS: Barbiturates Screen,Urine Negative (Negative); Benzodiazepines Screen,Urine Negative (Negative); Cannabinoid Screen,Urine Negative (Negative); Opiate Screen,Urine Negative (Negative); Phencyclidine Screen,Urine Negative (Negative)
[2021-05-06 14:53] LABS: Albumin 3.1 G/DL (3.4-5.0); Calcium 8.1 MG/DL (8.5-10.1); Osmolality,Calculated 274.4 MOS/KG (273-304); Total Protein 7.6 G/DL (6.4-8.2)
[2021-05-06 15:07] LABS: Hypochromasia 2+; Lymphocytes 4 % (20-55); Platelet Estimate Adequate; Polychromasia Few; Segmented Neutrophils 95 % (50-85); Total Cells Counted 100
[2021-05-06] MEDS ORDERED: GLUCAGON 1 MG VIAL IM PRN (16:28)
[2021-05-06] MEDS ORDERED: DEXTROSE 50% 25 GM/50 ML VIAL IV PRN (16:28)
[2021-05-06] MEDS ORDERED: hydrALAZINE 20 MG/1 ML VIAL IV PRN (16:28)
[2021-05-06] MEDS ORDERED: ONDANSETRON 4 MG/2 ML VIAL IV PRN (16:28)
[2021-05-06] MEDS ORDERED: POTASSIUM CHLORIDE RIDER 10 MEQ/100 ML PREMIX IV PRN (16:34)
[2021-05-06] MEDS ORDERED: MAGNESIUM SULF RIDER 4 GM/100 ML PREMIX IV PRN (16:36)
[2021-05-06] MEDS ORDERED: MAGNESIUM SULF RIDER 2 GM/50 ML PREMIX IV PRN (16:36)
[2021-05-06] MEDS: chlordiazePOXIDE 25 MG CAPSULE PO SCH ×2 (19:09→21:22)
[2021-05-06] MEDS: ENOXAPARIN 40 MG/0.4 ML SYRINGE SUBCUT SCH (20:10)
[2021-05-07] MEDS: chlordiazePOXIDE 25 MG CAPSULE PO SCH ×5 (01:24→20:26)
[2021-05-07] MEDS: SODIUM CHLORIDE 0.9% 1,000 ML IV SCH ×2 (01:29→10:29)
[2021-05-07 05:03] LABS: Basophils % 0.9 % (0.0-0.8); Eosinophils # 0.1 10*3/uL (0.0-0.87); Hematocrit 29.9 VOL% (42.0-52.0); Hemoglobin 9.4 GM/DL (14.0-18.0); Immature Granulocytes % 0.5 %; Immature Granulocytes Absolute 0.02 #; Lymphocytes % 23.1 % (21.2-54.2); Mean Corpuscular HGB Conc 31.4 GM/DL (32-36); Mean Corpuscular Volume 88.2 FL (87-102); Mean Platelet Volume 11.2 FL (9.6-12.0); Monocytes % 14.7 % (1.7-12.7); Neutrophils % 58.8 % (38.7-73.9); Platelet Count 146 T/CUMM (130-400); Red Blood Count 3.39 MC/CUMM (3.8-5.5); Red Cell Distribution Width 13.8 % (9.3-17.3); White Blood Count 4.4 T/CUMM (4-12)
[2021-05-07 05:54] LABS: Albumin 2.9 G/DL (3.4-5.0); Bilirubin,Total 2.2 MG/DL (0.2-1.0); Calcium 8.5 MG/DL (8.5-10.1); Osmolality,Calculated 269.7 MOS/KG (273-304); Potassium 3.8 MMOL/L (3.5-5.1); Thyroid Stimulating Hormone 1.46 uIU/ml (0.358-3.74); Total Protein 7.2 G/DL (6.4-8.2)
[2021-05-07] MEDS: FOLIC ACID 1 MG TABLET PO SCH (08:52)
[2021-05-07] MEDS: THIAMINE 100 MG TABLET PO SCH (08:52)
[2021-05-07] MEDS: PANTOPRAZOLE 40 MG TABLET PO SCH (08:52)
[2021-05-07] MEDS: POTASSIUM CHLORIDE 20 MEQ TABLET PO PRN (08:52)
[2021-05-07] MEDS: CHOLECALCIFEROL 1,000 UNIT TABLET PO SCH (08:52)
[2021-05-07] MEDS: MULTIVITAMIN (CENTRUM) TABLET PO SCH (08:52)
[2021-05-07] MEDS ORDERED: NON-FORMULARY MEDICATION (Albuterol Sulfate [Proair Hfa] 90 MCG/PUFF HFA aerosol inhaler) INH PRN (12:20)
[2021-05-07] MEDS ORDERED: ALBUTEROL 2.5 MG/3 ML NEB RESP TX PRN (12:20)
[2021-05-07] MEDS: carvediloL 6.25 MG TABLET PO SCH ×2 (12:54→20:26)
[2021-05-07] MEDS: IPRATROPIUM 500 MCG/2.5 ML NEB RESP TX SCH ×2 (14:00)
[2021-05-07 15:10] LABS: ABG Base Excess 0.6 MMOL/L (-2.5-2.5); ABG TCO2 22.2 MMOL/L (23-27)
[2021-05-07] MEDS ORDERED: chlordiazePOXIDE 25 MG CAPSULE PO SCH (17:30)
[2021-05-07] MEDS: ENOXAPARIN 40 MG/0.4 ML SYRINGE SUBCUT SCH (20:26)
[2021-05-07] MEDS: BUDESONIDE/FORMOTEROL 160-4.5 INHALER 6 GM INH SCH (20:26)
[2021-05-07] MEDS: THEOPHYLLINE ER 300 MG TABLET PO SCH (20:26)
[2021-05-07] MEDS: LORazepam 2 MG/1 ML VIAL IV PRN (21:41)
[2021-05-08] MEDS: LORazepam 2 MG/1 ML VIAL IV PRN ×3 (03:57→20:49)
[2021-05-08 04:29] LABS: Basophils % 0.5 % (0.0-0.8); Eosinophils # 0.2 10*3/uL (0.0-0.87); Eosinophils % 3.2 % (0.00-10.9); Hematocrit 32.7 VOL% (42.0-52.0); Hemoglobin 10.1 GM/DL (14.0-18.0); Immature Granulocytes % 0.3 %; Immature Granulocytes Absolute 0.02 #; Lymphocytes # 0.7 10*3/uL (1.4-4.0); Lymphocytes % 12.6 % (21.2-54.2); Mean Corpuscular HGB Conc 30.9 GM/DL (32-36); Mean Corpuscular Volume 88.9 FL (87-102); Mean Platelet Volume 10.8 FL (9.6-12.0); Monocytes % 10.1 % (1.7-12.7); Neutrophils % 73.3 % (38.7-73.9); Platelet Count 154 T/CUMM (130-400); Red Blood Count 3.68 MC/CUMM (3.8-5.5); Red Cell Distribution Width 13.6 % (9.3-17.3); White Blood Count 5.9 T/CUMM (4-12)
[2021-05-08 05:00] LABS: Albumin 2.9 G/DL (3.4-5.0); Bilirubin,Total 0.9 MG/DL (0.2-1.0); Calcium 8.9 MG/DL (8.5-10.1); Osmolality,Calculated 273.7 MOS/KG (273-304); Potassium 3.1 MMOL/L (3.5-5.1); Total Protein 7.3 G/DL (6.4-8.2)
[2021-05-08] MEDS: MONTELUKAST 10 MG TABLET PO SCH (08:57)
[2021-05-08] MEDS: THEOPHYLLINE ER 300 MG TABLET PO SCH ×2 (08:57→20:48)
[2021-05-08] MEDS: POTASSIUM CHLORIDE 20 MEQ TABLET PO PRN ×4 (08:57→15:29)
[2021-05-08] MEDS: gemfibroziL 600 MG TABLET PO SCH (08:57)
[2021-05-08] MEDS: EZETIMIBE 10 MG TABLET PO SCH (08:57)
[2021-05-08] MEDS: THIAMINE 100 MG TABLET PO SCH (08:57)
[2021-05-08] MEDS: chlordiazePOXIDE 25 MG CAPSULE PO SCH ×2 (08:57→14:26)
[2021-05-08] MEDS: CHOLECALCIFEROL 1,000 UNIT TABLET PO SCH (08:57)
[2021-05-08] MEDS: FOLIC ACID 1 MG TABLET PO SCH (08:57)
[2021-05-08] MEDS: MULTIVITAMIN (CENTRUM) TABLET PO SCH (08:57)
[2021-05-08] MEDS: PANTOPRAZOLE 40 MG TABLET PO SCH (08:58)
[2021-05-08] MEDS: BUDESONIDE/FORMOTEROL 160-4.5 INHALER 6 GM INH SCH ×2 (09:01→20:48)
[2021-05-08] MEDS: carvediloL 6.25 MG TABLET PO SCH (09:12)
[2021-05-08] MEDS: carvediloL 3.125 MG TABLET PO SCH ×2 (09:15→20:48)
[2021-05-08] MEDS ORDERED: chlordiazePOXIDE 25 MG CAPSULE PO SCH (13:30)
[2021-05-08] MEDS: ENOXAPARIN 40 MG/0.4 ML SYRINGE SUBCUT SCH (20:48)
[2021-05-09] MEDS: LORazepam 2 MG/1 ML VIAL IV PRN ×2 (03:59→16:54)
[2021-05-09 08:39] LABS: Bilirubin,Total 0.8 MG/DL (0.2-1.0); Calcium 9.1 MG/DL (8.5-10.1); Osmolality,Calculated 272.5 MOS/KG (273-304); Total Protein 7.4 G/DL (6.4-8.2)
[2021-05-09] MEDS: FOLIC ACID 1 MG TABLET PO SCH (08:54)
[2021-05-09] MEDS: THEOPHYLLINE ER 300 MG TABLET PO SCH ×2 (08:54→21:48)
[2021-05-09] MEDS: carvediloL 3.125 MG TABLET PO SCH ×2 (08:55→21:48)
[2021-05-09] MEDS: THIAMINE 100 MG TABLET PO SCH (08:55)
[2021-05-09] MEDS: PANTOPRAZOLE 40 MG TABLET PO SCH (08:55)
[2021-05-09] MEDS: gemfibroziL 600 MG TABLET PO SCH (08:55)
[2021-05-09] MEDS: BUDESONIDE/FORMOTEROL 160-4.5 INHALER 6 GM INH SCH ×2 (08:55→21:49)
[2021-05-09] MEDS: CHOLECALCIFEROL 1,000 UNIT TABLET PO SCH (08:55)
[2021-05-09] MEDS: MONTELUKAST 10 MG TABLET PO SCH (08:55)
[2021-05-09] MEDS: MULTIVITAMIN (CENTRUM) TABLET PO SCH (08:55)
[2021-05-09] MEDS: EZETIMIBE 10 MG TABLET PO SCH (08:56)
[2021-05-09 09:02] LABS: Basophils % 0.4 % (0.0-0.8); Eosinophils # 0.2 10*3/uL (0.0-0.87); Hematocrit 35.5 VOL% (42.0-52.0); Hemoglobin 10.8 GM/DL (14.0-18.0); Immature Granulocytes % 0.4 %; Immature Granulocytes Absolute 0.03 #; Lymphocytes % 14.1 % (21.2-54.2); Mean Corpuscular HGB Conc 30.4 GM/DL (32-36); Mean Corpuscular Volume 89.9 FL (87-102); Mean Platelet Volume 11.3 FL (9.6-12.0); Monocytes % 10.8 % (1.7-12.7); Neutrophils % 71.3 % (38.7-73.9); Platelet Count 154 T/CUMM (130-400); Red Blood Count 3.95 MC/CUMM (3.8-5.5); Red Cell Distribution Width 13.9 % (9.3-17.3)
[2021-05-09] MEDS: ENOXAPARIN 40 MG/0.4 ML SYRINGE SUBCUT SCH (21:48)
[2021-05-10] MEDS: SODIUM CHLORIDE 0.9% 1,000 ML IV SCH (06:04)
[2021-05-10 07:15] LABS: Basophils % 0.5 % (0.0-0.8); Eosinophils # 0.2 10*3/uL (0.0-0.87); Eosinophils % 2.3 % (0.00-10.9); Hematocrit 31.9 VOL% (42.0-52.0); Hemoglobin 9.6 GM/DL (14.0-18.0); Immature Granulocytes % 0.3 %; Immature Granulocytes Absolute 0.02 #; Mean Corpuscular HGB Conc 30.1 GM/DL (32-36); Mean Corpuscular Volume 89.6 FL (87-102); Mean Platelet Volume 10.6 FL (9.6-12.0); Monocytes % 13.4 % (1.7-12.7); Neutrophils % 70.5 % (38.7-73.9); Platelet Count 160 T/CUMM (130-400); Red Blood Count 3.56 MC/CUMM (3.8-5.5); Red Cell Distribution Width 14.2 % (9.3-17.3); White Blood Count 7.9 T/CUMM (4-12)
[2021-05-10 07:33] LABS: Eosinophils 1 % (0-10); Lymphocytes 5 % (20-55); Platelet Estimate Adequate; Segmented Neutrophils 79 % (50-85); Total Cells Counted 100
[2021-05-10 07:34] LABS: Hypochromasia 1+; Microcytosis 1+
[2021-05-10 07:35] LABS: Calcium 8.9 MG/DL (8.5-10.1); Osmolality,Calculated 271.7 MOS/KG (273-304); Potassium 4.2 MMOL/L (3.5-5.1)
[2021-05-10] MEDS: EZETIMIBE 10 MG TABLET PO SCH (08:52)
[2021-05-10] MEDS: gemfibroziL 600 MG TABLET PO SCH (08:52)
[2021-05-10] MEDS: MONTELUKAST 10 MG TABLET PO SCH (08:52)
[2021-05-10] MEDS: PANTOPRAZOLE 40 MG TABLET PO SCH (08:52)
[2021-05-10] MEDS: MULTIVITAMIN (CENTRUM) TABLET PO SCH (08:52)
[2021-05-10] MEDS: CHOLECALCIFEROL 1,000 UNIT TABLET PO SCH (08:52)
[2021-05-10] MEDS: THEOPHYLLINE ER 300 MG TABLET PO SCH ×2 (08:53→21:00)
[2021-05-10] MEDS: carvediloL 3.125 MG TABLET PO SCH ×2 (08:53→21:01)
[2021-05-10] MEDS: FOLIC ACID 1 MG TABLET PO SCH (08:53)
[2021-05-10] MEDS: BUDESONIDE/FORMOTEROL 160-4.5 INHALER 6 GM INH SCH ×2 (08:53→21:01)
[2021-05-10] MEDS: THIAMINE 100 MG TABLET PO SCH (08:53)
[2021-05-10] MEDS: ENOXAPARIN 40 MG/0.4 ML SYRINGE SUBCUT SCH (21:01)
[2021-05-11 07:33] LABS: Basophils % 0.5 % (0.0-0.8); Eosinophils # 0.1 10*3/uL (0.0-0.87); Eosinophils % 1.6 % (0.00-10.9); Hematocrit 29.5 VOL% (42.0-52.0); Hemoglobin 9.3 GM/DL (14.0-18.0); Immature Granulocytes % 0.2 %; Immature Granulocytes Absolute 0.02 #; Lymphocytes # 1.1 10*3/uL (1.4-4.0); Lymphocytes % 13.6 % (21.2-54.2); Mean Corpuscular HGB Conc 31.5 GM/DL (32-36); Mean Corpuscular Volume 88.6 FL (87-102); Monocytes % 15.8 % (1.7-12.7); Neutrophils % 68.3 % (38.7-73.9); Platelet Count 153 T/CUMM (130-400); Red Blood Count 3.33 MC/CUMM (3.8-5.5); Red Cell Distribution Width 14.6 % (9.3-17.3); White Blood Count 8.4 T/CUMM (4-12)
[2021-05-11 07:53] LABS: Eosinophils 4 % (0-10); Hypochromasia 1+; Lymphocytes 12 % (20-55); Microcytosis 1+; Platelet Estimate Adequate; Segmented Neutrophils 70 % (50-85); Total Cells Counted 100
[2021-05-11 07:57] LABS: Albumin 2.8 G/DL (3.4-5.0); Bilirubin,Total 0.7 MG/DL (0.20-1.00); Calcium 9.2 MG/DL (8.5-10.1); Osmolality,Calculated 270.8 MOS/KG (273-304); Potassium 4.2 MMOL/L (3.5-5.1); Total Protein 7.2 G/DL (6.4-8.2)
[2021-05-11] MEDS: THEOPHYLLINE ER 300 MG TABLET PO SCH ×2 (09:07→22:30)
[2021-05-11] MEDS: PANTOPRAZOLE 40 MG TABLET PO SCH (09:07)
[2021-05-11] MEDS: EZETIMIBE 10 MG TABLET PO SCH (09:07)
[2021-05-11] MEDS: SODIUM CHLORIDE 0.9% 1,000 ML IV SCH ×3 (09:08→18:02)
[2021-05-11] MEDS: gemfibroziL 600 MG TABLET PO SCH (09:08)
[2021-05-11] MEDS: CHOLECALCIFEROL 1,000 UNIT TABLET PO SCH (09:08)
[2021-05-11] MEDS: MONTELUKAST 10 MG TABLET PO SCH (09:08)
[2021-05-11] MEDS: MULTIVITAMIN (CENTRUM) TABLET PO SCH (09:08)
[2021-05-11] MEDS: FOLIC ACID 1 MG TABLET PO SCH (09:08)
[2021-05-11] MEDS: THIAMINE 100 MG TABLET PO SCH (09:08)
[2021-05-11] MEDS: carvediloL 3.125 MG TABLET PO SCH ×2 (09:08→22:30)
[2021-05-11] MEDS: BUDESONIDE/FORMOTEROL 160-4.5 INHALER 6 GM INH SCH ×2 (09:10→22:17)
[2021-05-11 13:02] LABS: Amorphous Crystals,Urine Occasional /HPF (Few); Bilirubin,Urine Negative (Negative); Blood, Urine Negative (Negative); Glucose,Urine (UA) Negative (Negative); Ketones,Urine Negative (Negative); Mucus,Urine Occasional /LPF (Occasional); Nitrite,Urine Negative (Negative); Protein,Urine Negative; RBC,Urine 9 /HPF (0-4); Urine Appearance CLOUDY (Clear); Urine Color Yellow (Yellow); Urine Specific Gravity 1.013 (1.001-1.035); Urine Urobilinogen < 2.0 EU/DL (0.2-1.0)
[2021-05-11] MEDS: ENOXAPARIN 40 MG/0.4 ML SYRINGE SUBCUT SCH (22:16)
[2021-05-12 06:17] LABS: Basophils % 0.5 % (0.0-0.8); Eosinophils # 0.1 10*3/uL (0.0-0.87); Eosinophils % 1.1 % (0.00-10.9); Hematocrit 30.8 VOL% (42.0-52.0); Hemoglobin 9.4 GM/DL (14.0-18.0); Immature Granulocytes % 0.6 %; Immature Granulocytes Absolute 0.05 #; Lymphocytes # 0.9 10*3/uL (1.4-4.0); Lymphocytes % 11.3 % (21.2-54.2); Mean Corpuscular HGB Conc 30.5 GM/DL (32-36); Mean Platelet Volume 11.2 FL (9.6-12.0); Monocytes % 19.2 % (1.7-12.7); Neutrophils % 67.3 % (38.7-73.9); Platelet Count 185 T/CUMM (130-400); Red Blood Count 3.46 MC/CUMM (3.8-5.5); Red Cell Distribution Width 14.5 % (9.3-17.3); White Blood Count 8.2 T/CUMM (4-12)
[2021-05-12 06:55] LABS: Albumin 2.9 G/DL (3.4-5.0); Bilirubin,Total 0.8 MG/DL (0.20-1.00); Calcium 9.6 MG/DL (8.5-10.1); Osmolality,Calculated 259.7 MOS/KG (273-304); Potassium 4.1 MMOL/L (3.5-5.1); Total Protein 7.6 G/DL (6.4-8.2)
[2021-05-12 06:56] LABS: Anisocytosis 2+; Band Neutrophils 8 % (0-10); Hypochromasia Slight; Lymphocytes 12 % (20-55); Macrocytosis 1+; Platelet Estimate Normal; Segmented Neutrophils 61 % (50-85); Total Cells Counted 100
[2021-05-12] MEDS: carvediloL 3.125 MG TABLET PO SCH ×2 (08:30→22:30)
[2021-05-12] MEDS: THEOPHYLLINE ER 300 MG TABLET PO SCH ×2 (08:34→22:30)
[2021-05-12] MEDS: THIAMINE 100 MG TABLET PO SCH (08:34)
[2021-05-12] MEDS: CHOLECALCIFEROL 1,000 UNIT TABLET PO SCH (08:34)
[2021-05-12] MEDS: PANTOPRAZOLE 40 MG TABLET PO SCH (08:34)
[2021-05-12] MEDS: MULTIVITAMIN (CENTRUM) TABLET PO SCH (08:34)
[2021-05-12] MEDS: FOLIC ACID 1 MG TABLET PO SCH (08:34)
[2021-05-12] MEDS: gemfibroziL 600 MG TABLET PO SCH (08:34)
[2021-05-12] MEDS: BUDESONIDE/FORMOTEROL 160-4.5 INHALER 6 GM INH SCH ×2 (08:34→20:55)
[2021-05-12] MEDS: MONTELUKAST 10 MG TABLET PO SCH (08:34)
[2021-05-12] MEDS: EZETIMIBE 10 MG TABLET PO SCH (08:34)
[2021-05-12] MEDS: SODIUM CHLORIDE 0.9% 1,000 ML IV SCH ×2 (14:53→18:45)
[2021-05-12] MEDS: ENOXAPARIN 40 MG/0.4 ML SYRINGE SUBCUT SCH (20:54)
[2021-05-13] MEDS ORDERED: LORazepam 2 MG/1 ML VIAL IV PRN (02:51)
[2021-05-13] MEDS: SODIUM CHLORIDE 0.9% 1,000 ML IV SCH ×2 (05:00→19:19)
[2021-05-13 06:29] LABS: Basophils # 0.1 10*3/uL (0.0-0.2); Basophils % 0.9 % (0.0-0.8); Eosinophils # 0.2 10*3/uL (0.0-0.87); Eosinophils % 1.9 % (0.00-10.9); Hematocrit 37.2 VOL% (42.0-52.0); Hemoglobin 11.2 GM/DL (14.0-18.0); Immature Granulocytes % 0.4 %; Immature Granulocytes Absolute 0.03 #; Lymphocytes % 13.4 % (21.2-54.2); Mean Corpuscular HGB Conc 30.1 GM/DL (32-36); Mean Corpuscular Volume 89.6 FL (87-102); Mean Platelet Volume 11.9 FL (9.6-12.0); Monocytes % 15.7 % (1.7-12.7); Neutrophils % 67.7 % (38.7-73.9); Platelet Count 171 T/CUMM (130-400); Red Blood Count 4.15 MC/CUMM (3.8-5.5); Red Cell Distribution Width 14.3 % (9.3-17.3); White Blood Count 7.7 T/CUMM (4-12)
[2021-05-13 07:00] LABS: Albumin 3.3 G/DL (3.4-5.0); Bilirubin,Total 0.8 MG/DL (0.20-1.00); Calcium 9.5 MG/DL (8.5-10.1); Osmolality,Calculated 261.4 MOS/KG (273-304); Potassium 5.1 MMOL/L (3.5-5.1); Total Protein 7.9 G/DL (6.4-8.2)
[2021-05-13 07:12] LABS: Eosinophils 5 % (0-10); Lymphocytes 10 % (20-55); Platelet Estimate Normal; Segmented Neutrophils 78 % (50-85); Total Cells Counted 100
[2021-05-13] MEDS: FOLIC ACID 1 MG TABLET PO SCH (08:33)
[2021-05-13] MEDS: MULTIVITAMIN (CENTRUM) TABLET PO SCH (08:33)
[2021-05-13] MEDS: MONTELUKAST 10 MG TABLET PO SCH (08:33)
[2021-05-13] MEDS: PANTOPRAZOLE 40 MG TABLET PO SCH (08:33)
[2021-05-13] MEDS: THEOPHYLLINE ER 300 MG TABLET PO SCH ×2 (08:33→21:39)
[2021-05-13] MEDS: THIAMINE 100 MG TABLET PO SCH (08:33)
[2021-05-13] MEDS: gemfibroziL 600 MG TABLET PO SCH (08:33)
[2021-05-13] MEDS: EZETIMIBE 10 MG TABLET PO SCH (08:34)
[2021-05-13] MEDS: CHOLECALCIFEROL 1,000 UNIT TABLET PO SCH (08:34)
[2021-05-13] MEDS: carvediloL 3.125 MG TABLET PO SCH ×2 (10:15→21:39)
[2021-05-13] MEDS: BUDESONIDE/FORMOTEROL 160-4.5 INHALER 6 GM INH SCH ×2 (10:28→21:39)
[2021-05-13] MEDS: ENOXAPARIN 40 MG/0.4 ML SYRINGE SUBCUT SCH (21:39)
[2021-05-14] MEDS: BUDESONIDE/FORMOTEROL 160-4.5 INHALER 6 GM INH SCH ×5 (01:34→21:01)
[2021-05-14] MEDS: THEOPHYLLINE ER 300 MG TABLET PO SCH ×4 (01:34→21:00)
[2021-05-14] MEDS: carvediloL 3.125 MG TABLET PO SCH ×4 (01:34→20:59)
[2021-05-14] MEDS ORDERED: LORazepam 2 MG/1 ML VIAL IV PRN (02:35)
[2021-05-14 05:55] LABS: Calcium 9.2 MG/DL (8.5-10.1); Osmolality,Calculated 272.7 MOS/KG (273-304); Potassium 3.9 MMOL/L (3.5-5.1)
[2021-05-14] MEDS: SODIUM CHLORIDE 0.9% 1,000 ML IV SCH ×2 (07:52→08:22)
[2021-05-14] MEDS: CHOLECALCIFEROL 1,000 UNIT TABLET PO SCH ×2 (07:54→08:22)
[2021-05-14] MEDS: gemfibroziL 600 MG TABLET PO SCH ×2 (07:54→08:21)
[2021-05-14] MEDS: EZETIMIBE 10 MG TABLET PO SCH ×2 (07:54→08:22)
[2021-05-14] MEDS: THIAMINE 100 MG TABLET PO SCH ×2 (07:55→08:22)
[2021-05-14] MEDS: MONTELUKAST 10 MG TABLET PO SCH ×2 (07:55→08:22)
[2021-05-14] MEDS: MULTIVITAMIN (CENTRUM) TABLET PO SCH ×2 (07:55→08:21)
[2021-05-14] MEDS: PANTOPRAZOLE 40 MG TABLET PO SCH ×2 (07:55→08:22)
[2021-05-14] MEDS: FOLIC ACID 1 MG TABLET PO SCH ×2 (07:56→08:21)
[2021-05-14] MEDS: ENOXAPARIN 40 MG/0.4 ML SYRINGE SUBCUT SCH (21:00)
[2021-05-15] MEDS: SODIUM CHLORIDE 0.9% 1,000 ML IV SCH ×2 (08:30→13:28)
[2021-05-15] MEDS: carvediloL 3.125 MG TABLET PO SCH ×2 (10:54→21:21)
[2021-05-15] MEDS: FOLIC ACID 1 MG TABLET PO SCH (10:54)
[2021-05-15] MEDS: chlordiazePOXIDE 25 MG CAPSULE PO SCH ×3 (10:55→21:21)
[2021-05-15] MEDS: gemfibroziL 600 MG TABLET PO SCH (10:55)
[2021-05-15] MEDS: PANTOPRAZOLE 40 MG TABLET PO SCH (10:55)
[2021-05-15] MEDS: MULTIVITAMIN (CENTRUM) TABLET PO SCH (10:55)
[2021-05-15] MEDS: CHOLECALCIFEROL 1,000 UNIT TABLET PO SCH (10:55)
[2021-05-15] MEDS: MONTELUKAST 10 MG TABLET PO SCH (10:55)
[2021-05-15] MEDS: EZETIMIBE 10 MG TABLET PO SCH (10:55)
[2021-05-15] MEDS: THEOPHYLLINE ER 300 MG TABLET PO SCH ×2 (10:55→21:21)
[2021-05-15] MEDS: THIAMINE 100 MG TABLET PO SCH (10:55)
[2021-05-15] MEDS: BUDESONIDE/FORMOTEROL 160-4.5 INHALER 6 GM INH SCH ×2 (10:57→21:21)
[2021-05-15] MEDS: ENOXAPARIN 40 MG/0.4 ML SYRINGE SUBCUT SCH (21:21)
[2021-05-16] MEDS: LORazepam 2 MG/1 ML VIAL IV PRN ×2 (01:36→13:05)
[2021-05-16] MEDS: SODIUM CHLORIDE 0.9% 1,000 ML IV SCH ×2 (05:32→18:14)
[2021-05-16] MEDS: gemfibroziL 600 MG TABLET PO SCH (09:29)
[2021-05-16] MEDS: PANTOPRAZOLE 40 MG TABLET PO SCH (09:30)
[2021-05-16] MEDS: carvediloL 3.125 MG TABLET PO SCH ×2 (09:30→20:51)
[2021-05-16] MEDS: FOLIC ACID 1 MG TABLET PO SCH (09:30)
[2021-05-16] MEDS: MULTIVITAMIN (CENTRUM) TABLET PO SCH (09:30)
[2021-05-16] MEDS: THIAMINE 100 MG TABLET PO SCH (09:30)
[2021-05-16] MEDS: CHOLECALCIFEROL 1,000 UNIT TABLET PO SCH (09:31)
[2021-05-16] MEDS: MONTELUKAST 10 MG TABLET PO SCH (09:31)
[2021-05-16] MEDS: EZETIMIBE 10 MG TABLET PO SCH (09:31)
[2021-05-16] MEDS: THEOPHYLLINE ER 300 MG TABLET PO SCH ×2 (09:31→20:51)
[2021-05-16] MEDS: chlordiazePOXIDE 25 MG CAPSULE PO SCH ×3 (09:31→20:51)
[2021-05-16] MEDS: BUDESONIDE/FORMOTEROL 160-4.5 INHALER 6 GM INH SCH ×2 (15:28→20:52)
[2021-05-16] MEDS: ENOXAPARIN 40 MG/0.4 ML SYRINGE SUBCUT SCH (21:04)
[2021-05-17] MEDS: SODIUM CHLORIDE 0.9% 1,000 ML IV SCH (07:33)
[2021-05-17] MEDS: FOLIC ACID 1 MG TABLET PO SCH (09:51)
[2021-05-17] MEDS: gemfibroziL 600 MG TABLET PO SCH (09:51)
[2021-05-17] MEDS: MULTIVITAMIN (CENTRUM) TABLET PO SCH (09:51)
[2021-05-17] MEDS: carvediloL 3.125 MG TABLET PO SCH ×2 (09:51→21:10)
[2021-05-17] MEDS: CHOLECALCIFEROL 1,000 UNIT TABLET PO SCH (09:52)
[2021-05-17] MEDS: PANTOPRAZOLE 40 MG TABLET PO SCH (09:52)
[2021-05-17] MEDS: MONTELUKAST 10 MG TABLET PO SCH (09:52)
[2021-05-17] MEDS: EZETIMIBE 10 MG TABLET PO SCH (09:52)
[2021-05-17] MEDS: THEOPHYLLINE ER 300 MG TABLET PO SCH ×2 (09:52→21:10)
[2021-05-17] MEDS: BUDESONIDE/FORMOTEROL 160-4.5 INHALER 6 GM INH SCH ×2 (09:52→21:10)
[2021-05-17] MEDS: THIAMINE 100 MG TABLET PO SCH (10:02)
[2021-05-17 11:10] LABS: Basophils # 0.1 10*3/uL (0.0-0.2); Basophils % 0.6 % (0.0-0.8); Eosinophils # 0.1 10*3/uL (0.0-0.87); Eosinophils % 0.8 % (0.00-10.9); Hematocrit 28.2 VOL% (42.0-52.0); Hemoglobin 8.6 GM/DL (14.0-18.0); Immature Granulocytes % 0.4 %; Immature Granulocytes Absolute 0.05 #; Lymphocytes # 1.2 10*3/uL (1.4-4.0); Lymphocytes % 8.6 % (21.2-54.2); Mean Corpuscular HGB Conc 30.5 GM/DL (32-36); Mean Corpuscular Volume 87.9 FL (87-102); Mean Platelet Volume 10.7 FL (9.6-12.0); Monocytes % 9.2 % (1.7-12.7); Neutrophils % 80.4 % (38.7-73.9); Platelet Count 415 T/CUMM (130-400); Red Blood Count 3.21 MC/CUMM (3.8-5.5); Red Cell Distribution Width 14.8 % (9.3-17.3)
[2021-05-17 11:24] LABS: Calcium 9.6 MG/DL (8.5-10.1); Osmolality,Calculated 267.1 MOS/KG (273-304); Potassium 3.8 MMOL/L (3.5-5.1)
[2021-05-17 11:30] LABS: Atypical Lymphocytes Few; Eosinophils 1 % (0-10); Hypochromasia 1+; Lymphocytes 11 % (20-55); Microcytosis 1+; Segmented Neutrophils 78 % (50-85); Total Cells Counted 100
[2021-05-17 11:31] LABS: Platelet Estimate Increased
[2021-05-17 11:37] LABS: ABG Base Excess 3.7 MMOL/L (-2.5-2.5); ABG HCO3 28.1 MMOL/L (20-26); ABG Oxygen Saturation 99.1 % (95-100); ABG PCO2 41.6 MM HG (35-48); ABG PH 7.447 (7.35-7.45); ABG TCO2 29.3 MMOL/L (23-27); Allen Test Positive
[2021-05-17] MEDS: ENOXAPARIN 40 MG/0.4 ML SYRINGE SUBCUT SCH (21:26)
[2021-05-18] MEDS: SODIUM CHLORIDE 0.9% 1,000 ML IV SCH ×2 (08:14→16:05)
[2021-05-18] MEDS: carvediloL 3.125 MG TABLET PO SCH (09:05)
[2021-05-18] MEDS: MULTIVITAMIN (CENTRUM) TABLET PO SCH (09:05)
[2021-05-18] MEDS: FOLIC ACID 1 MG TABLET PO SCH (09:05)
[2021-05-18] MEDS: PANTOPRAZOLE 40 MG TABLET PO SCH (09:06)
[2021-05-18] MEDS: CHOLECALCIFEROL 1,000 UNIT TABLET PO SCH (09:06)
[2021-05-18] MEDS: gemfibroziL 600 MG TABLET PO SCH (09:06)
[2021-05-18] MEDS: MONTELUKAST 10 MG TABLET PO SCH (09:06)
[2021-05-18] MEDS: THEOPHYLLINE ER 300 MG TABLET PO SCH (09:06)
[2021-05-18] MEDS: THIAMINE 100 MG TABLET PO SCH (09:06)
[2021-05-18] MEDS: EZETIMIBE 10 MG TABLET PO SCH (09:06)
[2021-05-18] MEDS: BUDESONIDE/FORMOTEROL 160-4.5 INHALER 6 GM INH SCH (09:54)
[2021-05-18] MEDS: LORazepam 2 MG/1 ML VIAL IV PRN (17:46)
[2021-05-19] MEDS: BUDESONIDE/FORMOTEROL 160-4.5 INHALER 6 GM INH SCH ×4 (01:20→20:34)
[2021-05-19] MEDS: LORazepam 2 MG/1 ML VIAL IV PRN ×2 (02:00→19:49)
[2021-05-19] MEDS: carvediloL 3.125 MG TABLET PO SCH ×3 (02:20→20:34)
[2021-05-19] MEDS: THEOPHYLLINE ER 300 MG TABLET PO SCH ×3 (02:20→20:34)
[2021-05-19] MEDS: ENOXAPARIN 40 MG/0.4 ML SYRINGE SUBCUT SCH ×2 (02:21→19:50)
[2021-05-19 05:43] LABS: Basophils # 0.1 10*3/uL (0.0-0.2); Basophils % 1.1 % (0.0-0.8); Eosinophils # 0.3 10*3/uL (0.0-0.87); Eosinophils % 2.1 % (0.00-10.9); Hematocrit 30.9 VOL% (42.0-52.0); Hemoglobin 9.6 GM/DL (14.0-18.0); Immature Granulocytes % 0.3 %; Immature Granulocytes Absolute 0.04 #; Lymphocytes # 1.6 10*3/uL (1.4-4.0); Lymphocytes % 13.7 % (21.2-54.2); Mean Corpuscular HGB Conc 31.1 GM/DL (32-36); Mean Corpuscular Volume 86.1 FL (87-102); Mean Platelet Volume 11.3 FL (9.6-12.0); Monocytes % 12.7 % (1.7-12.7); Neutrophils % 70.1 % (38.7-73.9); Platelet Count 464 T/CUMM (130-400); Red Blood Count 3.59 MC/CUMM (3.8-5.5); White Blood Count 11.7 T/CUMM (4-12)
[2021-05-19] MEDS: SODIUM CHLORIDE 0.9% 1,000 ML IV SCH ×2 (07:58→10:31)
[2021-05-19] MEDS: gemfibroziL 600 MG TABLET PO SCH (08:25)
[2021-05-19] MEDS: FOLIC ACID 1 MG TABLET PO SCH (08:25)
[2021-05-19] MEDS: MULTIVITAMIN (CENTRUM) TABLET PO SCH (08:25)
[2021-05-19] MEDS: PANTOPRAZOLE 40 MG TABLET PO SCH (08:26)
[2021-05-19] MEDS: EZETIMIBE 10 MG TABLET PO SCH (08:26)
[2021-05-19] MEDS: CHOLECALCIFEROL 1,000 UNIT TABLET PO SCH (08:26)
[2021-05-19] MEDS: MONTELUKAST 10 MG TABLET PO SCH (08:26)
[2021-05-19] MEDS: THIAMINE 100 MG TABLET PO SCH (08:26)
[2021-05-19] MEDS ORDERED: ZIPRASIDONE 20 MG/1 ML VIAL IM PRN (21:40)
[2021-05-19] MEDS ORDERED: ZIPRASIDONE 20 MG/1 ML VIAL IM STA (21:41)
[2021-05-20 06:57] LABS: PT Patient Result 11.4 SECS (10.5-12.0)
[2021-05-20] MEDS ORDERED: LACTATED RINGERS 1,000 ML IV SCH (07:00)
[2021-05-20] MEDS: FOLIC ACID 1 MG TABLET PO SCH (08:35)
[2021-05-20] MEDS: THEOPHYLLINE ER 300 MG TABLET PO SCH (08:35)
[2021-05-20] MEDS: MONTELUKAST 10 MG TABLET PO SCH (08:35)
[2021-05-20] MEDS: MULTIVITAMIN (CENTRUM) TABLET PO SCH (08:35)
[2021-05-20] MEDS: CHOLECALCIFEROL 1,000 UNIT TABLET PO SCH (08:35)
[2021-05-20] MEDS: PANTOPRAZOLE 40 MG TABLET PO SCH (08:35)
[2021-05-20] MEDS: EZETIMIBE 10 MG TABLET PO SCH (08:35)
[2021-05-20] MEDS: THIAMINE 100 MG TABLET PO SCH (08:35)
[2021-05-20] MEDS: gemfibroziL 600 MG TABLET PO SCH (08:35)
[2021-05-20] MEDS: carvediloL 3.125 MG TABLET PO SCH (08:36)
[2021-05-20] MEDS: BUDESONIDE/FORMOTEROL 160-4.5 INHALER 6 GM INH SCH (08:36)
[2021-05-20 11:12] VITALS: BP 128/86
[2021-05-20] MEDS: SODIUM CHLORIDE 0.9% 1,000 ML IV SCH (12:20)
== END 2021-05-20 15:50 | disposition home or self-care (01) | DRG 896 ==
LOC: EDBD → EDUNIT# → N.ED 12:48 → SUATTDRO 16:28 → N.EDINP 16:28 → N.3E 17:30
PROVIDERS: ADMIT Hospitalist; ATTEND Internal Medicine